=== PATIENT | female | born 1970 | race Two or more races ===

== ENCOUNTER → 2024-09-19 | Outpatient (CLI) | payer MEDICAID, SELFPAY ==
--- NOTE | 2024-09-19 10:14 | XR_ITS ---
Examination: Cervical spine 3 views Technique one AP lateral coned AP odontoid cervical spine 3 views Exam date and time: September 19, 2024 1022 hrs. Indications: Neck pain beginning one year ago radiating down both arms Findings: Adequate alignment cervical vertebral bodies No cervical fracture Intact odontoid No cervical disc narrowing Impression: No cervical fracture No cervical disc narrowing
== END | disposition home or self-care (01) ==
PROVIDERS: PCP Registered Nurse Community Health; Referring Provider Physician Assistant; Visit Provider Physician Assistant
DX: M54.2 Cervicalgia (principal)
CPT/HCPCS: 72040

== ENCOUNTER → 2024-10-17 | Outpatient (CLI) | payer MEDICAID, SELFPAY ==
--- NOTE | 2024-10-17 14:00 | XR_ITS ---
Examination: Bone densitometry Date and time of exam:October 17, 2024 1424 hours INDICATIONS: Menopause age 48 Technique: Lumbar spine and hip total bone mineralization values of an calculated. Peak reference and age match control results have been displayed. Findings: Lumbar spine total bone mineralization is1.272 gm/cm2. This is 2.0 standard deviations above peak reference. This is 3.2 standard deviations above age-matched controls. Hip total bone mineralization is 1.136 gm/cm2 This is 1.3 standard deviations above peak reference. This is 2.1 standard deviations above age-matched controls Impression: There is normal mineralization based on lumbar spine measurements. There is normal mineralization based on hip measurements
== END | disposition home or self-care (01) ==
LOC: CDIM 14:01
PROVIDERS: Referring Provider Physician Assistant; Visit Provider Physician Assistant
DX: M85.80 Other specified disorders of bone density and structure, unspecified site (principal)
CPT/HCPCS: 77080

== ENCOUNTER 2024-10-18 13:30 | Outpatient (RCR) | payer MEDICAID, SELFPAY ==
--- NOTE | 2024-09-25 15:08 | PT.OIERPT ---
PT OP Initial Eval Patient Information Outpatient Physical Therapy Treatment Date: 09/25/24 Visit Reasons: neck pain Medical Diagnosis: M54.2 Treatment Dx #1: neck pain with L UE radiculopathy Start of Care: 09/25/24 Date of Onset: 1 yr ago Smoking Status Smoking Status: Never smoker Initial Assessment Subjective: Pt is 54 yr old cape verdean speaking female who c/o L sided neck pain that radiates down the L shoulder and UE which limits lifting and reaching with L UE. PMH: RA, DM Imaging: Xray of C/S in EMR, negative Pt goal: less neck pain Objective: C/S ArOM; Flexion: full Extension: 40% of full Rotation: R: 90%, L: 80% TTP: L UT mod/high TTP and tension Assessment: Pt presents with limited cervical extension and increased tone and tightness with pain of L upper trapezius consistent with postural dysfunction. 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 Ind with HEP ? 2. Improved lifting tolerance with L UE ? 3. Decreased TTP of lower C/S and L UT from mod to min ? 4. Pt will sit with neutral shoulder and head posture x5' Treatment Plan ? 1. Manual therapy ? 2. Therex ? 3. Modalities as indicated, moist heat, ice, estim, mechanical traction Frequency and Duration: 1-2x a week for 12 visits Certification Dates: 09/25/24 to 12/26/24 Procedure Charges OP PT Eval Mod Complex 30 minutes: Yes
--- NOTE | 2024-10-11 13:28 | PT.ODAYNRPT ---
PT Outpatient Daily Note OP Daily Note Outpatient Physical Therapy Treatment Date: 10/11/24 Visit Reasons: neck pain Subjective: Pt report neck and shoulder pain. Objective: Please see flow sheet for ther ex list. Assessment: Pt instructed on scapular retraction, pt demonstrated poor scapular motion compensated with upper trap recruitment. Verba cues, demonstration and tactile cues to facilitate mid trapezius and rhomboid activation. Plan: Continue with pOC. Length of Time (minutes) of Treatment: 30 Minutes Procedure Charges Therapeutic Exercise 30 minutes: Yes
--- NOTE | 2024-10-18 14:08 | PT.ODAYNRPT ---
PT Outpatient Daily Note OP Daily Note Outpatient Physical Therapy Treatment Date: 10/18/24 Visit Reasons: neck pain Subjective: Pt reports neck is doing ok, mentioned L elbow pain is a main concern because the pain is always there and does not resolve. Objective: Please see flow sheet for ther ex list. Assessment: Pt requires demonstration and tactile cues to achieve interventions with desired movement and technique. Plan: Continue with POC. Length of Time (minutes) of Treatment: 30 Minutes Procedure Charges Therapeutic Exercise 30 minutes: Yes
== END 2024-10-22 23:59 | disposition home or self-care (01) ==
LOC: CPTX 13:30
PROVIDERS: PCP Physician Assistant; Referring Provider Physician Assistant; Visit Provider Physician Assistant
DX: M54.12 Radiculopathy, cervical region (principal); E11.9 Type 2 diabetes mellitus without complications
CPT/HCPCS: 97110; 97162

== ENCOUNTER 2025-01-12 12:01 | Emergency (ER) | payer MEDICAID, SELFPAY ==
[2025-01-12 12:18] VITALS: BP 110/66; PULSE 91; RESP 16; TEMP 36.9; O2SAT 98; BMI 26.4
--- NOTE | 2025-01-12 13:03 | PD.EDADULT ---
ED General RME/HPI General Chief complaint: General Adult/Misc Complain Stated complaint: Pt. took Valacyclovir last night. Time Seen by Provider: 01/12/25 12:48 Arrival date/time: 01/12/25 12:01 This is a 54-year-old female with a history of rheumatoid arthritis, diabetes. Patient states that she was recently seen by her primary provider and was prescribed valacyclovir because she had canker sores to the roof of her mouth. Patient states that she has had them there for about a week now. Patient states prior to the canker sores coming she had a fever. Patient no longer complaining of a fever but states that when she took the valacyclovir last night she had a lot of weird symptoms like dizziness and it felt like her vision got blurry. Patient became concerned and she does not want take medication anymore. Patient is also being treated for thrush to her tongue. Patient takes methotrexate for rheumatoid arthritis. Patient states she has been taking this for the past 15 years. Today patient is complaining of a headache to the back of her head and to the muscles to her lateral neck. Related Data Home Medications ?Medication ?Instructions ?Recorded ?Confirmed methotrexate sodium 7.5 mg tablet 2.5 mg PO Q7D #0 tabs 02/14/17 06/15/20 (Trexall) sitagliptin phosphate 50 1 tab PO BID 09/18/19 06/15/20 mg-metformin 500 mg tablet (Janumet) Previous Rx's ?Medication ?Instructions ?Recorded acetaminophen 650 mg 650 mg PO Q12H PRN fever #20 tabs 06/15/20 tablet,extended release (Tylenol Arthritis Pain) acetaminophen 500 mg capsule 1,000 mg (2 x 500 mg) PO Q8HR PRN 06/21/20 pain #60 caps ibuprofen 800 mg tablet 800 mg PO TID PRN pain #30 tabs 06/21/20 albuterol sulfate 90 mcg/actuation 1 inh inhalation QID PRN shortness 06/22/20 aerosol inhaler (Ventolin HFA) of breath or wheezing #6.7 grams benzonatate 100 mg capsule 100 mg PO BID PRN cough #20 caps 06/22/20 (Martin Ashley) dexamethasone 6 mg tablet 6 mg PO QDAY #7 tabs 06/22/20 hydroxyzine HCl 50 mg tablet 50 mg PO TID PRN anxiety #30 tabs 10/31/21 gabapentin 300 mg capsule See Rx Instructions .Route 05/19/22 .COMPLEX #20 caps azithromycin 250 mg tablet See Rx Instructions PO .COMPLEX #6 04/08/24 (Zithromax Z-Rony) tabs promethazine-DM 6.25 mg-15 mg/5 mL 5 ml PO Q6H #120 mL 04/08/24 oral syrup ibuprofen 800 mg tablet 800 mg PO Q6H PRN pain #10 tabs 01/12/25 Allergies Allergy/AdvReac Type Severity Reaction Status Date / Time No Known Allergies Allergy Verified 01/12/25 12:07 Review of Systems Review of Systems Systems Reviewed: All systems reviewed, normal except as documented Past Medical History Past Medical History CARDIAC: Negative Congestive Heart Failure RESPIRATORY: Negative Chronic Obstructive Pulmonary Disease (COPD) GENITOURINARY: Negative Renal Disease MUSCULOSKELETAL: Positive Arthritis ENDOCRINE: Positive Diabetes Mellitus Type 2; Negative Diabetes Mellitus Type 1 Social History SMOKING STATUS: Never smoker ED Exam Narrative Physical exam: VITAL SIGNS: Reviewed. GENERAL APPEARANCE: Alert and interactive, follows commands, no acute distress, HEAD AND FACE: Non-traumatic. ENT: PERRL, conjuctiva pink and clear, eyelid no trauma, Mucous membrane moist. canker sore at the roof of mouth NECK: Supple, nontender, no nuchal rigidity. CHEST: No tenderness, no crepitus, no paradoxical movement, no retractions. LUNGS: Clear, well ventilated, symmetric, no rales, no wheezing, no rhonchi, no stridor, good breath sounds bilaterally. HEART: Regular rate, regular rhythm, no murmur, no gallops. ABDOMEN: Soft, nondistended, no guarding, nontender, no rebound, no masses, NEUROLOGICAL: Gross motor function intact sensory function intact, Appropriate for age. MUSCULOSKELETAL: low back nontender, full range of motion. EXTREMITIES: No redness no swelling no skin breakdown on bilateral foot and leg. Distal neurovascular status intact bilateral foot SKIN: Color pink, dry, no rash, no lacerations, no abrasions, no contusions. Course Quality Measures none Orders Category Date Time Status Ibuprofen Tab [Motrin Tab] Med 01/12/25 13:04 Discontinued 800 mg PO X1 ONE Ondansetron Odt [Zofran Odt] Med 01/12/25 13:04 Discontinued 4 mg PO X1 ONE Vital Signs Vital signs: Vital Signs Temperature 98.4 F 01/12/25 12:18 Pulse Rate 91 01/12/25 12:18 Respiratory Rate 16 01/12/25 12:18 Blood Pressure 110/66 01/12/25 12:18 Pulse Oximetry (%) 98 01/12/25 12:18 Oxygen Delivery Method Room Air 01/12/25 12:18 Discharge Plan Plan Patient Disposition: HOME (Self Care) Patient condition on transfer: Stable Prescriptions/Referrals Prescriptions/Med Rec: New ibuprofen 800 mg tablet 800 mg PO Q6H PRN (Reason: pain) Qty: 10 0RF No Action Trexall 7.5 MG tablet 2.5 mg PO Q7D Qty: 0 Janumet 50-500 mg Tablet 1 tab PO BID benzonatate [Tessalon Perles] 100 mg capsule 100 mg PO BID PRN (Reason: cough) Qty: 20 0RF dexamethasone 6 mg tablet 6 mg PO QDAY Qty: 7 0RF albuterol sulfate [Ventolin HFA] 90 mcg/actuation HFA aerosol inhaler 1 inh inhalation QID PRN (Reason: shortness of breath or wheezing) Qty: 6.7 0RF hydroxyzine HCl 50 mg tablet 50 mg PO TID PRN (Reason: anxiety) Qty: 30 0RF acetaminophen [Tylenol Arthritis Pain] 650 mg tablet extended release 650 mg PO Q12H PRN (Reason: fever) Qty: 20 0RF ibuprofen 800 mg tablet 800 mg PO TID PRN (Reason: pain) Qty: 30 0RF acetaminophen 500 mg capsule 1,000 mg PO Q8HR PRN (Reason: pain) Qty: 60 0RF gabapentin 300 mg capsule See Rx Instructions .ROUTE .COMPLEX Qty: 20 0RF Rx Instructions: 300mg po qday x1 then 300mg po BID x1 day then 300mg po tid azithromycin [Zithromax Z-Rony] 250 mg tablet See Rx Instructions PO .COMPLEX Qty: 6 0RF Rx Instructions: take 500 mg today (day 1), then 250 mg for 4 days (days 2-5) promethazine-DM 6.25-15 mg/5 mL syrup 5 ml PO Q6H Qty: 120 0RF Problem List Clinical Impression: Acute tension headache Patient/Caregiver Discharge Instructions Discharge Activity: activity as tolerated Education Materials: ED Headache, Tension Additional Instructions: Angella un pepper con holman medico de cabecera en las proximas 24-48 horas. Regrese a la lisbeth de emergencias si hay evidencia de que los signos o sintomas empeoran. Print Language: Tristanian Stand Alone Forms: Mariya Award Info., Patient Portal Info Letter PA/TIPPLE OPERATOR Supervising Physician PA/TIPPLE OPERATOR Supervising Physician: masoud SCHULZ Narrative MDM hospital course: Spoke to patient at length. Patient will no longer take valacyclovir at this time. Patient will continue to take nystatin wash for thrush. Patient complains of a tension headache now. Will give patient ibuprofen. I told patient to follow-up with her primary provider in 1 to 2 days. Come back to the emergency room symptoms change or worsen. Patient comfortable plan of care. Clinical Information Provided by patient Medical Records Reviewed [facility] Meds/Rx Considered, not Ordered None Labs/Rad/Tests considered, not Ordered None Chronic Illness/Social Conditions which may negatively complicate care or outcome(s)-explain: other (see hpi) EKG EKG not done Lab Interpretation Labs: none Imaging Imaging interpretation: none Medication Administration(s) none Medication Administration History Discontinued Medications Ibuprofen (Ibuprofen Tab 400 Mg Tablet) 800 mg PO X1 ONE Stop: 01/12/25 13:05 Last Admin: 01/12/25 13:30 Dose: Not Given Documented By: SHERRIE Non-Admin Reason: Patient Refused Ondansetron HCl (Ondansetron Odt 4 Mg Tabrap) 4 mg PO X1 ONE; Protocol Stop: 01/12/25 13:05 Last Admin: 01/12/25 13:31 Dose: Not Given Documented By: SHERRIE Non-Admin Reason: Patient Refused Diagnosis Differential diagnosis: uri, cellulitis, herpes simplex sore Dispositon Disposition: Discharge Home
== END 2025-01-12 13:38 | disposition home or self-care (01) ==
PROVIDERS: Emergency Provider Emergency Medicine; PCP Registered Nurse Community Health
DX: G44.209 Tension-type headache, unspecified, not intractable (principal)
CPT/HCPCS: 99281

== ENCOUNTER → 2025-06-11 | Outpatient (CLI) | payer MEDICAID, SELFPAY ==
--- NOTE | 2025-06-11 09:15 | XR_ITS ---
Examination: Screening digital mammography, bilateral Computer aided detection 3-D breast Tomosynthesis, bilateral Date and time of exam: June 11, 2025, 0903 hours, compared to mammograms dating to September 05, 2012 Indication: Screening Technique: Nonmagnified MLO, CC views of the breasts to been obtained, reconstructed from 3-D Tomosynthesis images. R2 computer aided detection program utilized for evaluation of suspicious masses and/or abnormal calcifications. 3-D Tomosynthesis images obtained. Findings: Scattered areas of fibroglandular density. Benign calcifications. No interval suspicious mass lungs Impression: BI-RADS category II: Benign Findings. Recommend 1 year follow-up mammogram.
== END | disposition home or self-care (01) ==
LOC: CDIM 08:44
PROVIDERS: PCP Registered Nurse Community Health; Referring Provider Specialist; Visit Provider Specialist
DX: Z12.31 Encounter for screening mammogram for malignant neoplasm of breast (principal); R92.323 Mammographic fibroglandular density, bilateral breasts; R92.1 Mammographic calcification found on diagnostic imaging of breast
CPT/HCPCS: 77063; 77067